=== PATIENT | male | born 2000 | race Caucasian/White ===

== ENCOUNTER 2020-09-25 00:01 | Emergency (ER) | payer MEDICAID, SELFPAY ==
[2020-09-25 00:39] VITALS: BP 0/0; PULSE 0; RESP 0; TEMP -17.7; TEMP 0
== END 2020-09-25 00:40 | disposition left against medical advice (07) ==
PROVIDERS: Emergency Provider Emergency Medicine
DX: Z53.21 Procedure and treatment not carried out due to patient leaving prior to being seen by health care provider (principal)
CPT/HCPCS: 99211